=== PATIENT | male | born 1975 | race Asian ===

== ENCOUNTER 2020-03-25 21:43 | Emergency (ER) | payer BC ==
[~2020-03-25] VITALS: Ht 175.3 cm; Wt 88.6 kg
[~2020-03-25 21:43] MED LIST: CYCL-1 PO; METH8TAB6 PO
[2020-03-26] MEDS ORDERED: ibuprofen tablet 400 MG TABLET PO ONE (00:40)
[2020-03-26] MEDS ORDERED: acetaminophen 325mg tablet PO ONE (00:40)
[2020-03-26 00:46] VITALS: BP 143/84
== END 2020-03-26 00:47 | disposition home or self-care (01) ==
LOC: ER 21:43
DX: R07.89 Other chest pain (principal); R07.81 Pleurodynia; Z79.899 Other long term (current) drug therapy
CPT/HCPCS: 71101; 99283

== ENCOUNTER 2021-07-20 10:29 | Emergency (ER) | payer BC ==
[~2021-07-20] VITALS: Ht 175.3 cm; Wt 90.9 kg
[2021-07-20 10:42] VITALS: BP 149/106
--- NOTE | 2021-07-20 11:56 | NUR ---
SPOKE TO TAY STOVER AND ASKED IF WE NEED X RAY ORDER FOR THE PT , PER PA NOT NEEDED.
[2021-07-20] MEDS ORDERED: HYDROcodone/acetaminophen 10/325mg tab PO ONE (20:05)
[2021-07-20] MEDS ORDERED: colchicine 0.6mg tablet PO ONE (20:05)
[2021-07-20] MEDS ORDERED: ondansetron 4mg rapidly disintigrating tab PO ONE (20:05)
[2021-07-20] MEDS ORDERED: triamcinolone acetonide 40mg/ml inj IM ONE (20:05)
[2021-07-20] MEDS ORDERED: ketorolac trometh inj. 60 MG/2 ML VIAL IM ONE (20:05)
[2021-07-20] MEDS ORDERED: PRED20TA PO (20:06)
[2021-07-20] MEDS ORDERED: INDO75CA3 PO (20:06)
[2021-07-20] MEDS ORDERED: COLC0.6T72 PO (20:06)
== END 2021-07-20 20:33 | disposition home or self-care (01) ==
LOC: ER 10:30
DX: M10.9 Gout, unspecified (principal); Z79.899 Other long term (current) drug therapy
CPT/HCPCS: 73564; 96372; 99284; J1885; J3301